=== PATIENT | female | born 1965 | race African-American/Black ===

== ENCOUNTER 2016-12-25 09:04 | Emergency (ER) | payer SELFPAY ==
[2016-12-25 10:22] VITALS: BP 120/61
== END 2016-12-25 10:22 | disposition home or self-care (01) ==
LOC: ED 09:04
DX: G89.29 Other chronic pain (principal); M54.5 Low back pain; Z98.890 Other specified postprocedural states
CPT/HCPCS: J3010

== ENCOUNTER 2017-06-20 11:01 | Emergency (ER) | payer SELFPAY ==
[~2017-06-20] VITALS: Ht 167.6 cm; Wt 104.8 kg
[2017-06-20 11:06] VITALS: BP 123/71; Ht 167.6 cm; Wt 104.8 kg
== END 2017-06-20 12:18 | disposition home or self-care (01) ==
LOC: ED 11:01
DX: M54.16 Radiculopathy, lumbar region (principal)
CPT/HCPCS: J3010

== ENCOUNTER 2018-04-26 13:23 | Emergency (ER) | payer OTHER ==
[~2018-04-26] VITALS: Ht 167.6 cm; Wt 110.2 kg
[2018-04-26 13:28] VITALS: BP 144/62; Ht 167.6 cm; Wt 110.2 kg
== END 2018-04-26 14:24 | disposition home or self-care (01) ==
LOC: ED 13:23
DX: M54.30 Sciatica, unspecified side (principal); M79.604 Pain in right leg; G89.29 Other chronic pain; M54.2 Cervicalgia
CPT/HCPCS: J3010